=== PATIENT | female | born 1925 ===

== ENCOUNTER 2016-05-06 13:08 | Inpatient (IN) | payer OTHER ==
[~2016-05-06 13:08] MED LIST: ACEPHEN650 M1 PR; ALBUTEROL2.5 MG/3 M INH/SOL; ASPIRIN EC81 M1 PO; CEFTRIAXONE1 G1 IM; COLACE100 M1 PO; COREG6.25 M1 PO; DAILY MULTIPLE1 EACH PO; DULCOLAX10 M1 RC; FLEET ENEMA133 ML RC; GLUCAGON EMERGEN1 M1 IM; IRON325 M3 PO; KEPPRA100 MG/1 M PO; LANTUS100 UNIT/1 SC; LEXAPRO5 M1 PO; MAGNESIUM OXID400 M1 PO; MAPAP325 M1 PO; MILK OF MA400 MG/52 PO; MIRALAX17 G1 PO; NARCAN4 MG NAS; PAIN RELIEF325 MG PO; PERCOCET 5-3251 EACH PO; PRAVASTATIN SOD20 M2 PO; PREDNISONE5 M1 PO; SENNA8.6 M3 PO; TAMOXIFEN CITRA20 M1 PO; VITAMIN B-12500 MC2 PO; VITAMIN D350000 UNIT PO; XARELTO20 M2 PO; ZYLOPRIM100 M1 PO
--- NOTE | 2016-05-06 16:01 | PN- Att Addend ---
Attending Addendum Attending Brief Note Hospice Admission H&P Chief Complaint: Eval. 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 On admission pt was treated for hypernatremia, dehydration, profound anemia secondary to possible GIB (dark, guaiac positive stools) requiring transfusion of 4 u PRBCs, sepsis thought to be secondary to aspiration pneumonia due to history of dysphagia since CVA. Despite intervention, she remains lethargic and has failed swallow evaluation. Per her son/POA, pt has a living will and has expressly declared she does not wish a feeding tube. They therefore are requesting hospice evaluation. Allergies: PCN Review of Systems: unresponsive. Past Medical History: Afib-on Xarelto, HTN, CAD s/p stent, NSTEMI, CVA with residual left hemiparesis, visual and hearing deficit and dysphagia, dementia, CHF, hyperlipidemia, DMT2, PVD, breast cancer s/p right lumpectomy and left partial mastectomy, chronic headaches, seizure disorder, GERD, OA, gout, depression, anemia, peptic ulcer Past Surgical History: cardiac stent, carpal tunnel release bilat, cholecystectomy, inguinal hernia repair, MONA, bladder suspension x3, partial thyroidectomy, tonsillectomy, partial left mastectomy and right lumpectomy Family History: Parents : Mother with endometrial cancer, father with CVA. Sister lung CA (living); Brother throat Ca () Psychosocial History: Lives at [facility]. , 3 adult children. Has living will and son, Ricardo, is POA Functional Ability: dependent for IADLs and ADLs Exam and Diagnostic Data: Vital signs: T-97.9; HR-68; RR-20; BP-unable to detect Physical Exam: General: lethargic, elderly female in mild distress HEENT: oral mucosa moist CV: irreg irreg Resp.: course breath sounds, labored GI: obese, soft, pos. bowel sounds, nontender : saleh catheter with magdalena urine EXT: left upper and lower extremity edematous, left foot with mottling, drop foot Neuro/Psych: lethargic, minimally responsive but moaning with labored respirations Labs/Imaging: Wbc 17.8, hgb/hct on admission 4.8/15.7 and yesterday 8.6/27.1, plt 125. Na on admit 166, now 152; Bun 26, Cr 0.6; lactic acid 3.1 on admit. CXR on admit: No acute abnormality of the chest. Head CT: No definite acute intracranial findings with assessment very limited by the degree of motion artifact on this exam. - Redemonstrated large chronic infarct within the right MCA territory with associated encephalomalacia, gliosis, and mineralization. Chronic right-sided wallerian degeneration and chronic encephalomalacia throughout the right thalamus. - There is a left mastoid effusion. Assessment/Plan: 89 year old female with multiple comorbidities as noted in HPI with acute hypoxic respiratory failure with sepsis presumed to be secondary to aspiration pneumonia due to history of dysphagia with profound anemia who continues to do poorly with poor prognosis and is appropriate for inpatient hospice. Orders written. For respiratory distress/pain control: Morphine 2mg IV/SQ every 6 hours ATC and every 1 hour as needed. For anxiety/restlessness: Ativan 0.5mg IV/SQ every 2 hours as needed. For agitation: Haldol 0.5mg SQ every 2 hours as needed. For Secretions: Scopolamine patch every 72 hours; Robinul 0.4mg IV/SQ every 4 hrs as needed. For seizures: continue Keppra 500mg IV q12 hours.
[2016-05-07 06:30] VITALS: BP 88/50
[2016-05-08 07:25] VITALS: BP 70/40
--- NOTE | 2016-05-10 10:35 | Discharge Summary ---
Visit Information Visit Dates Admission Date: 05/06/16 Discharge Date: 05/09/16 Hospital Course Course Attending Physician: DEAN CHERRY M.D Primary Care Physician: AJ JOHNSON MD Hospital Course: 89 year old female with multiple comorbidities as noted in H&P with acute hypoxic respiratory failure with sepsis presumed to be secondary to aspiration pneumonia due to history of dysphagia with profound anemia who continues to do poorly with poor prognosis and was admitted to inpatient hospice service. Her symptoms were managed with morphine, scopolamine, robinul and ativan until she passed peacefully on 05/09/16. Allergies: Coded Allergies: Penicillins (UNKNOWN 07/09/15) Disposition Summary Disposition Principal Diagnosis: Acute hypoxic respiratory failure Sepsis Dysphagia Anemia Additional Diagnosis: Dementia Atrial Fibrillation History of Cerebrovascular accident with residual left hemiparesis Discharge Disposition: Discharge Instructions General Discharge Information Code Status: Hospice Patient's Diet: N/A Patient's Activity: N/A Follow-Up Instructions/Appts: N/A Copies To: AJ JOHNSON MD
== END 2016-05-09 01:05 | disposition expired | DRG 189 ==
LOC: 2NA 13:08
PROVIDERS: ADMIT Internal Medicine
DX: J96.00 Acute respiratory failure, unspecified whether with hypoxia or hypercapnia (principal); A41.9 Sepsis, unspecified organism; R13.10 Dysphagia, unspecified; D64.9 Anemia, unspecified; Z51.5 Encounter for palliative care
CPT/HCPCS: J0780; J1630; J1953